=== PATIENT | female | born 1960 | race Caucasian/White ===

== ENCOUNTER 2020-07-19 08:44 | Emergency (ER) | payer MEDICARE, OTHER ==
[~2020-07-19] VITALS: Ht 160 cm; Wt 83.9 kg
[2020-07-19] MEDS ORDERED: FURO40 PO (09:02)
[2020-07-19] MEDS ORDERED: LEVE500 PO (09:03)
[2020-07-19] MEDS ORDERED: Lovastatin10 MG PO (09:03)
[2020-07-19] MEDS ORDERED: LISI10 PO (09:03)
[2020-07-19] MEDS ORDERED: METO25ER PO (09:03)
[2020-07-19] MEDS ORDERED: ALORA TOP (09:43)
[2020-07-19] MEDS ORDERED: Crestor40 MG PO ×2 (09:43→10:11)
[2020-07-19] MEDS ORDERED: MUPIROCIN1 GM TOP ×2 (09:43→11:10)
[2020-07-19] MEDS ORDERED: Lasix40 MG PO ×2 (09:43→10:11)
[2020-07-19] MEDS ORDERED: Prinivil10 MG PO ×2 (09:43→10:11)
[2020-07-19] MEDS ORDERED: Toprol Xl25 MG PO ×2 (09:43→10:11)
[2020-07-19] MEDS ORDERED: ALORA1 EACH TOP (10:11)
[2020-07-19] MEDS ORDERED: PERCOCET 10-321 EAC4 PO (10:41)
== END 2020-07-19 11:16 | disposition home or self-care (01) ==
LOC: ER 08:44
DX: S22.42XA Multiple fractures of ribs, left side, initial encounter for closed fracture (principal); L01.00 Impetigo, unspecified; G40.909 Epilepsy, unspecified, not intractable, without status epilepticus; E78.00 Pure hypercholesterolemia, unspecified; I10 Essential (primary) hypertension; F17.200 Nicotine dependence, unspecified, uncomplicated; Z79.899 Other long term (current) drug therapy; Z76.0 Encounter for issue of repeat prescription; Z88.5 Allergy status to narcotic agent; W18.30XA Fall on same level, unspecified, initial encounter
CPT/HCPCS: 71101; 96372; 99284-25; J3010

== ENCOUNTER 2020-07-24 05:39 | Emergency (ER) | payer MEDICARE, OTHER ==
[~2020-07-24] VITALS: Ht 157.5 cm; Wt 78.0 kg
[~2020-07-24 05:39] MED LIST: ALORA TOP; ALORA1 EACH TOP; Crestor40 MG PO; FURO40 PO; LEVE500 PO; LISI10 PO; Lasix40 MG PO; Lovastatin10 MG PO; METO25ER PO; MUPIROCIN1 GM TOP; PERCOCET 10-321 EAC4 PO; Prinivil10 MG PO; Toprol Xl25 MG PO
[2020-07-24 07:17] LABS: BASOPHILS ABSOLUTE AUTO 0.11 K/mm3 (0.00-0.23); BASOPHILS PERCENT AUTO 1 % (0-2); EOSINOPHILS ABSOLUTE AUTO 0.52 K/mm3 (0.00-0.68); EOSINOPHILS PERCENT AUTO 6 % (0-6); Hematocrit 38.5 % (33.0-51.0); Hemoglobin 12.4 g/dL (11.5-16.0); IMMATURE GRAN ABSOLUTE AUTO 0.03 K/mm3 (0.00-0.10); IMMATURE GRAN PERCENT AUTO 0 % (0-1); LYMPHOCYTES ABSOLUTE AUTO 2.31 K/mm3 (0.84-5.20); LYMPHOCYTES PERCENT AUTO 25 % (21-46); MONOCYTES ABSOLUTE AUTO 0.64 K/mm3 (0.16-1.47); MONOCYTES PERCENT AUTO 7 % (4-13); Mean Corpuscular HGB 30.2 pg (26.0-34.0); Mean Corpuscular HGB Conc 32.2 g/dL (31.5-36.5); Mean Corpuscular Volume 94 fL (80-100); Mean Platelet Volume 11.5 fL (9.1-12.4); NEUTROPHILS ABSOLUTE AUTO 5.81 K/mm3 (1.96-9.15); NEUTROPHILS PERCENT AUTO 62 % (41-73); Platelet Count 211 K/mm3 (150-400); RDW Standard Deviation 41.1 fL (35.1-46.3); White Blood Cell Count 9.42 K/mm3 (4.00-11.30)
[2020-07-24 07:40] LABS: Alanine Aminotransfer (ALT/SGP 19 U/L (12-78); Albumin/Globulin Ratio 0.9 (0.8-1.8); Alk Phos 115 U/L (50-136); Anion Gap 5 mmol/L (6-16); Aspartate Aminotrans (AST/SGOT 10 U/L (12-37); Bilirubin, Total 0.3 mg/dL (0.1-1.0); Blood Urea Nitrogen 16 mg/dL (8-24); Bun/Creatinine Ratio 23.3 (12.0-20.0); CO2, Blood 25 mmol/L (21-32); Calcium, Blood 8.5 mg/dL (8.5-10.1); Chloride, Blood 114 mmol/L (98-108); Creatinine, Blood 0.69 mg/dL (0.40-1.00); Globulin, Blood 3.5 g/dL (2.2-4.0); Glomerular Filtration Rate >60 (60-); Glucose, Blood 155 mg/dL (70-99); Potassium, Blood 4.4 mmol/L (3.5-5.5); Sodium, Blood 144 mmol/L (136-145); Total Protein, Blood 6.5 g/dL (6.4-8.2); Troponin I <0.015 ng/mL (0.000-0.040)
[2020-07-24] MEDS ORDERED: Percocet 5-3251 EACH PO (08:17)
[2020-07-24] MEDS ORDERED: IBU600 M1 PO (08:17)
[2020-07-24] MEDS ORDERED: ALBU90OI INH (08:17)
[2020-07-24] MEDS ORDERED: Zithromax250 MG PO (08:17)
[2020-07-24] MEDS ORDERED: LIDO700A20 TOP (08:17)
[2020-11-10] MEDS ORDERED: LEVE500 PO (14:56)
[2020-11-10] MEDS ORDERED: METO25ER PO (14:57)
[2020-11-10] MEDS ORDERED: CLOP75 PO (14:58)
[2020-11-10] MEDS ORDERED: Prinivil10 MG PO (14:58)
[2020-11-10] MEDS ORDERED: Crestor20 MG PO (14:58)
[2020-11-10] MEDS ORDERED: FURO40 PO (14:58)
[2020-11-10] MEDS ORDERED: NARCAN4 M1 (15:59)
[2020-11-10] MEDS ORDERED: HYDMOR4 PO (15:59)
[2020-11-15] MEDS ORDERED: BUSP5 PO (14:31)
[2020-11-15] MEDS ORDERED: EZET10 PO (14:31)
[2020-11-15] MEDS ORDERED: PROM25 PO (14:32)
[2020-11-15] MEDS ORDERED: MIRT15 PO (14:32)
[2020-11-15] MEDS ORDERED: OXYC30ER PO (14:34)
[2020-11-15] MEDS ORDERED: Percocet 10-321 EACH PO (14:36)
== END 2020-07-24 08:35 | disposition home or self-care (01) ==
LOC: ER 05:39
PROVIDERS: Emergency Medicine
DX: S22.42XA Multiple fractures of ribs, left side, initial encounter for closed fracture (principal); J98.11 Atelectasis; I10 Essential (primary) hypertension; G40.909 Epilepsy, unspecified, not intractable, without status epilepticus; E78.00 Pure hypercholesterolemia, unspecified; F17.200 Nicotine dependence, unspecified, uncomplicated; Z79.899 Other long term (current) drug therapy; Z88.5 Allergy status to narcotic agent; W18.30XA Fall on same level, unspecified, initial encounter
CPT/HCPCS: 71045; 80053; 84145; 84484; 85025; 93005; 93010; 96374; 99284-25; A9270; J1885

== ENCOUNTER 2020-08-07 09:10 | Emergency (ER) | payer MEDICARE, OTHER ==
[~2020-08-07] VITALS: Ht 157.5 cm; Wt 78.0 kg
[~2020-08-07 09:10] MED LIST changes: +ALBU90OI INH; +IBU600 M1 PO; +LIDO700A20 TOP; +Percocet 5-3251 EACH PO; +Zithromax250 MG PO
[2020-08-07 09:49] LABS: BASOPHILS ABSOLUTE AUTO 0.14 K/mm3 (0.00-0.23); BASOPHILS PERCENT AUTO 2 % (0-2); EOSINOPHILS ABSOLUTE AUTO 0.57 K/mm3 (0.00-0.68); EOSINOPHILS PERCENT AUTO 6 % (0-6); Hematocrit 42.5 % (33.0-51.0); Hemoglobin 13.5 g/dL (11.5-16.0); IMMATURE GRAN ABSOLUTE AUTO 0.02 K/mm3 (0.00-0.10); IMMATURE GRAN PERCENT AUTO 0 % (0-1); LYMPHOCYTES ABSOLUTE AUTO 2.33 K/mm3 (0.84-5.20); LYMPHOCYTES PERCENT AUTO 25 % (21-46); MONOCYTES PERCENT AUTO 7 % (4-13); Mean Corpuscular HGB 30.7 pg (26.0-34.0); Mean Corpuscular HGB Conc 31.8 g/dL (31.5-36.5); Mean Corpuscular Volume 97 fL (80-100); Mean Platelet Volume 11.7 fL (9.1-12.4); NEUTROPHILS ABSOLUTE AUTO 5.54 K/mm3 (1.96-9.15); NEUTROPHILS PERCENT AUTO 60 % (41-73); Platelet Count 212 K/mm3 (150-400); RDW Coefficient Variation 13.2 % (11.7-14.2); RDW Standard Deviation 46.6 fL (35.1-46.3)
[2020-08-07 10:07] LABS: Alanine Aminotransfer (ALT/SGP 12 U/L (12-78); Albumin, Blood 3.3 g/dL (3.4-5.0); Alk Phos 113 U/L (50-136); Anion Gap 3 mmol/L (6-16); Aspartate Aminotrans (AST/SGOT 11 U/L (12-37); Bilirubin, Total 0.5 mg/dL (0.1-1.0); Blood Urea Nitrogen 20 mg/dL (8-24); CO2, Blood 26 mmol/L (21-32); Calcium, Blood 8.3 mg/dL (8.5-10.1); Chloride, Blood 111 mmol/L (98-108); Globulin, Blood 3.2 g/dL (2.2-4.0); Glomerular Filtration Rate >60 (60-); Glucose, Blood 121 mg/dL (70-99); Potassium, Blood 4.6 mmol/L (3.5-5.5); Sodium, Blood 140 mmol/L (136-145); Total Protein, Blood 6.5 g/dL (6.4-8.2); Valproic Acid <3.0 ug/mL (50.0-100.0)
[2020-08-07] MEDS ORDERED: LIDO700A20 TOP (11:14)
[2020-08-07] MEDS ORDERED: Percocet 5-3251 EACH PO (11:14)
[2020-08-07] MEDS ORDERED: IBUP600 PO (11:21)
[2020-08-07] MEDS ORDERED: Robaxin750 MG PO (11:21)
[2020-11-10] MEDS ORDERED: LEVE500 PO (14:56)
[2020-11-10] MEDS ORDERED: METO25ER PO (14:57)
[2020-11-10] MEDS ORDERED: Crestor20 MG PO (14:58)
[2020-11-10] MEDS ORDERED: Prinivil10 MG PO (14:58)
[2020-11-10] MEDS ORDERED: FURO40 PO (14:58)
[2020-11-10] MEDS ORDERED: CLOP75 PO (14:58)
[2020-11-10] MEDS ORDERED: HYDMOR4 PO (15:59)
[2020-11-10] MEDS ORDERED: NARCAN4 M1 (15:59)
[2020-11-15] MEDS ORDERED: BUSP5 PO (14:31)
[2020-11-15] MEDS ORDERED: EZET10 PO (14:31)
[2020-11-15] MEDS ORDERED: PROM25 PO (14:32)
[2020-11-15] MEDS ORDERED: MIRT15 PO (14:32)
[2020-11-15] MEDS ORDERED: OXYC30ER PO (14:34)
[2020-11-15] MEDS ORDERED: Percocet 10-321 EACH PO (14:36)
== END 2020-08-07 11:28 | disposition home or self-care (01) ==
LOC: ER 09:10
PROVIDERS: Emergency Medicine
DX: S22.42XA Multiple fractures of ribs, left side, initial encounter for closed fracture (principal); G40.909 Epilepsy, unspecified, not intractable, without status epilepticus; F17.200 Nicotine dependence, unspecified, uncomplicated; Z88.5 Allergy status to narcotic agent; Z79.899 Other long term (current) drug therapy; Z79.4 Long term (current) use of insulin; W22.8XXA Striking against or struck by other objects, initial encounter
CPT/HCPCS: 36415; 71101; 80053; 80164; 85025; 93005; 93010; 96374; 96375; 99284-25; J1885; J2405

== ENCOUNTER → 2020-09-07 | Outpatient (CLI) | payer MEDICARE, OTHER ==
[~2020-09-07] MED LIST changes: +BUSP5 PO; +CLOP75 PO; +Crestor20 MG PO; +EZET10 PO; +HYDMOR4 PO; +IBUP600 PO; +MIRT15 PO; +NARCAN4 M1; +OXYC30ER PO; +PROM25 PO; +Percocet 10-321 EACH PO; +Robaxin750 MG PO
== END | disposition home or self-care (01) ==
LOC: LAB SHORT 13:08 → PLD 13:08
DX: R11.2 Nausea with vomiting, unspecified (principal); R30.0 Dysuria
CPT/HCPCS: 87077; 87086; 87186

== ENCOUNTER → 2020-09-10 | Outpatient (CLI) | payer MEDICARE, OTHER ==
[2020-09-10 13:47] LABS: C DIFFICILE DNA NEGATIVE (Negative)
== END | disposition home or self-care (01) ==
LOC: LAB 11:11 → LAB SHORT 11:11
PROVIDERS: Internal Medicine
DX: R19.7 Diarrhea, unspecified (principal); R11.2 Nausea with vomiting, unspecified; A06.1 Chronic intestinal amebiasis
CPT/HCPCS: 87015; 87045; 87046; 87177; 87205; 87209; 87328; 87329; 87493; 87899

== ENCOUNTER 2020-09-11 09:12 | Emergency (ER) | payer MEDICARE, OTHER ==
[~2020-09-11] VITALS: Ht 157.5 cm; Wt 73.5 kg
[~2020-09-11 09:12] MED LIST changes: -BUSP5 PO; -CLOP75 PO; -Crestor20 MG PO; -EZET10 PO; -HYDMOR4 PO; -MIRT15 PO; -NARCAN4 M1; -OXYC30ER PO; -PROM25 PO; -Percocet 10-321 EACH PO
[2020-11-10] MEDS ORDERED: LEVE500 PO (14:56)
[2020-11-10] MEDS ORDERED: METO25ER PO (14:57)
[2020-11-10] MEDS ORDERED: Prinivil10 MG PO (14:58)
[2020-11-10] MEDS ORDERED: Crestor20 MG PO (14:58)
[2020-11-10] MEDS ORDERED: FURO40 PO (14:58)
[2020-11-10] MEDS ORDERED: CLOP75 PO (14:58)
[2020-11-10] MEDS ORDERED: HYDMOR4 PO (15:59)
[2020-11-10] MEDS ORDERED: NARCAN4 M1 (15:59)
[2020-11-15] MEDS ORDERED: EZET10 PO (14:31)
[2020-11-15] MEDS ORDERED: BUSP5 PO (14:31)
[2020-11-15] MEDS ORDERED: PROM25 PO (14:32)
[2020-11-15] MEDS ORDERED: MIRT15 PO (14:32)
[2020-11-15] MEDS ORDERED: OXYC30ER PO (14:34)
[2020-11-15] MEDS ORDERED: Percocet 10-321 EACH PO (14:36)
== END 2020-09-11 10:44 | disposition home or self-care (01) ==
LOC: ER 09:12
DX: K52.9 Noninfective gastroenteritis and colitis, unspecified (principal); R07.89 Other chest pain; G89.29 Other chronic pain; Z88.5 Allergy status to narcotic agent; Z79.899 Other long term (current) drug therapy
CPT/HCPCS: 36415; 99283

== ENCOUNTER 2020-10-01 06:44 | Emergency (ER) | payer MEDICARE, OTHER ==
[~2020-10-01] VITALS: Ht 157.5 cm; Wt 68.0 kg
[2020-11-10] MEDS ORDERED: LEVE500 PO (14:56)
[2020-11-10] MEDS ORDERED: METO25ER PO (14:57)
[2020-11-10] MEDS ORDERED: Prinivil10 MG PO (14:58)
[2020-11-10] MEDS ORDERED: FURO40 PO (14:58)
[2020-11-10] MEDS ORDERED: Crestor20 MG PO (14:58)
[2020-11-10] MEDS ORDERED: CLOP75 PO (14:58)
[2020-11-10] MEDS ORDERED: HYDMOR4 PO (15:59)
[2020-11-10] MEDS ORDERED: NARCAN4 M1 (15:59)
[2020-11-15] MEDS ORDERED: BUSP5 PO (14:31)
[2020-11-15] MEDS ORDERED: EZET10 PO (14:31)
[2020-11-15] MEDS ORDERED: MIRT15 PO (14:32)
[2020-11-15] MEDS ORDERED: PROM25 PO (14:32)
[2020-11-15] MEDS ORDERED: OXYC30ER PO (14:34)
[2020-11-15] MEDS ORDERED: Percocet 10-321 EACH PO (14:36)
== END 2020-10-01 07:43 | disposition home or self-care (01) ==
LOC: ER 06:44
DX: G89.29 Other chronic pain (principal); F17.210 Nicotine dependence, cigarettes, uncomplicated; Z87.81 Personal history of (healed) traumatic fracture; Z79.899 Other long term (current) drug therapy
CPT/HCPCS: 99281; A9270